=== PATIENT | female | born 1975 ===

== ENCOUNTER 2025-04-04 06:21 | Day surgery (SDC) | payer BC, SELFPAY | END 2025-04-04 12:06 | disposition home or self-care (01) | LOC: GI 06:21 | PROVIDERS: ATTENDING PHYSICIAN Internal Medicine | DX: Z12.11 Encounter for screening for malignant neoplasm of colon (principal); K52.9 Noninfective gastroenteritis and colitis, unspecified; K64.8 Other hemorrhoids; K55.21 Angiodysplasia of colon with hemorrhage; R76.8 Other specified abnormal immunological findings in serum; K31.7 Polyp of stomach and duodenum; K22.89 Other specified disease of esophagus; K31.89 Other diseases of stomach and duodenum; D12.8 Benign neoplasm of rectum; K63.5 Polyp of colon; K29.50 Unspecified chronic gastritis without bleeding | CPT/HCPCS: 45382; 45385; 45380; 43239; 88305; 88342 ==